=== PATIENT | male | born 1945 | race Two or more races ===

== ENCOUNTER 2016-10-18 11:02 | Emergency (ER) | payer MEDICARE ==
[~2016-10-18] VITALS: Ht 167.6 cm; Wt 84.8 kg
--- NOTE | 2016-10-18 11:10 | NUR ---
ASSUME PT CARE. RESTING IN BED. BIBRA FROM THE STREETS TO ER BED 09. PER REPORT, DIZZINESS AND GENERALIZED WEAKNESS WHILE WALKING. PT WAS ADMITTED AT A DIFFERENT HOSPITAL FOR SAME REASON 2 WEEKS AGO. GOWNED AND PLACED ON MONITOR. STABLE VITALS.
[2016-10-18] MEDS ORDERED: IV SET PRIMARY PUMP SET 1 EA INFUS.SET MC ONE (11:11)
[2016-10-18] MEDS ORDERED: IV SET PRIMARY 1 EA INFUS.SET MC ONE (11:11)
[2016-10-18] MEDS ORDERED: IV NS 0.9% 1,000 ML ONE (11:11)
[2016-10-18] MEDS ORDERED: ONDANSETRON HCL/PF 4 MG/2 ML VIAL ONE (11:11)
--- NOTE | 2016-10-18 11:15 | NUR ---
IV LINE STARTED BLOOD DRAWN AND SENT TO LAB.
--- NOTE | 2016-10-18 11:20 | NUR ---
PT MEDICATED ORDERED.
[2016-10-18 11:29] LABS: BASOPHILS # (AUTO) 0.1 /CMM (0.0-0.2); BASOPHILS % (AUTO) 0.8 % (0.0-2.0); EOSINOPHILS # (AUTO) 0.2 /CMM (0.0-0.7); HEMATOCRIT 44 % (39-51); HEMOGLOBIN 14.4 g/dL (13.5-17.5); LYMPHOCYTES # (AUTO) 3.7 /CMM (0.8-4.8); LYMPHOCYTES % (AUTO) 24.3 % (20.0-44.0); MEAN CORPUSCULAR HEMOGLOBIN 27 PG (26.0-33.0); MEAN CORPUSCULAR HGB CONC 33 g/dl (31.0-36.0); MEAN CORPUSCULAR VOLUME 83 fL (80-96); MONOCYTES # (AUTO) 0.7 /CMM (0.1-1.30); MONOCYTES % (AUTO) 4.5 % (2.0-12.0); NEUTROPHILS # (AUTO) 10.5 /CMM (1.8-8.9); NEUTROPHILS % (AUTO) 69.4 % (43.0-81.0); PLATELET COUNT (AUTO) 490 /CMM (150-450); WHITE BLOOD COUNT (AUTO) 15.2 K/uL (4.3-11.0)
[2016-10-18] MEDS ORDERED: IV NS 0.9% 1,000 ML BAG IV ONE (11:30)
[2016-10-18] MEDS ORDERED: ONDANSETRON HCL/PF 4 MG/2 ML VIAL IVP ONE (11:30)
[2016-10-18 11:40] LABS: CALCIUM, SERUM 9.5 mg/dL (8.5-10.1); CARBON DIOXIDE 21 mmol/L (21-32); CHLORIDE 102 mmol/L (98-107); CREATININE 1.7 mg/dL (0.6-1.3); GLUCOSE 199 mg/dL (74-106); POTASSIUM 4.2 mmol/L (3.5-5.1); SODIUM SERUM 137 mmol/L (136-145); UREA NITROGEN, BLOOD 22 mg/dL (7-18)
[2016-10-18 11:45] LABS: ALANINE AMINOTRANSFERASE 22 U/L (12-78); ALBUMIN 4.1 g/dL (3.4-5.0); ALKALINE PHOSPHATASE 72 U/L (46-116); ASPARTATE AMINOTRANSFERASE 21 U/L (15-37); BILIRUBIN,DIRECT 0.1 mg/dL (0.0-0.2); BILIRUBIN,TOTAL 0.3 mg/dL (0.2-1.0); TOTAL PROTEIN, SERUM 8.4 g/dL (6.4-8.2)
[2016-10-18 11:51] LABS: TROPONIN I < 0.017 ng/mL (0.00-0.056)
--- NOTE | 2016-10-18 13:00 | NUR ---
PT AMBULATORY, STATES STILL A LITTLE BIT DIZZY. WAS GIVEN OPTION BY DR KAY TO STAY OR GO HOME. PT STATES WILL SEE HIS PRIMARY ON THURSDAY AND THAT HE WILL BE OK TO GO IN A FEW MINUTE. DR KAY AT BEDSIDE AWARE.
--- NOTE | 2016-10-18 13:40 | NUR ---
Patient discharged to home in stable condition. Written and verbal after care instructions given. Patient verbalizes understanding of instruction.IV removed. Catheter intact and site benign. Pressure and 4x4 applied to site. No bleeding noted.
[2016-10-18 14:10] VITALS: BP 128/74
== END 2016-10-18 14:10 | disposition home or self-care (01) ==
LOC: ER 11:04
DX: R42 Dizziness and giddiness (principal); E11.9 Type 2 diabetes mellitus without complications; I10 Essential (primary) hypertension; F31.9 Bipolar disorder, unspecified
CPT/HCPCS: 36415; 80048; 80076; 84484; 85025; 93005; 96361; 96374; 99285; A4606; J2405; J7030; Z7610